=== PATIENT | male | born 1965 | race Caucasian/White ===

== ENCOUNTER 2017-09-21 10:24 | Day surgery (SDC) | payer OTHER ==
[~2017-09-21 10:24] MED LIST: NACL 0.9% 1000 ML 1,000 ML ONE
[2017-09-21] MEDS ORDERED: WATER FOR IRRIG STERILE IR ONE (11:38)
[2017-09-21] MEDS ORDERED: NACL 0.9% 1000 ML 1,000 ML IV SCH (13:00)
--- NOTE | 2017-09-21 13:53 | Anesthesia Day of Surgery ---
Anesthesia Day of Surgery - Day of Surgery Patient Examined: Yes Patient H&P Reviewed: Yes Patient is NPO: Yes
--- NOTE | 2017-09-21 13:54 | Anesthesia Consultation ---
Anesthesia Consult and Med Hx Date of service: 09/21/17 - Airway Anesthetic Teeth Evaluation: Good ROM Head & Neck: Inadequate Mental/Hyoid Distance: Inadequate Mallampati Class: Class III Intubation Access Assessment: Possibly Difficult - Pulmonary Exam CTA: Yes - Cardiac Exam Cardiac Exam: RRR - Pre-Operative Health Status ASA Pre-Surgery Classification: ASA3 Proposed Anesthetic Plan: IV Sedation (HTN/ GERD/DM) - Cardiovascular System Hx Hypertension: Yes - Central Nervous System Hx Psychiatric Problems: No - Other Systems Hx Cancer: No
[2017-09-21] MEDS ORDERED: XYLOCAINE MPF 2% ONE (15:00)
[2017-09-21] MEDS ORDERED: DIPRIVAN 10 MG/ML IV ONE ×2 (15:05)
--- NOTE | 2017-09-21 15:26 | Operative Report ---
Operative Report Operative Report: Date of procedure: 09/21/2017 Procedure: Colonoscopy. Attending physician: Scotty Burgos MD Marketing Operations Manager: Scotty Burgos MD Indication: Patient is a 52-year-old male who presents for colonoscopy for colorectal cancer screening. A colonoscopy serves to evaluate patient so that treatment may be directed based on the findings. Consent: Informed consent was obtained after advising the patient and family regarding nature of this procedure, its indications, potential benefits as well as possible complications including but not limited to bleeding perforation and adverse reaction to medication, infection as well as other cardiopulmonary complications. An informed written and verbal consent was then obtained after due opportunity was provided for questions and answers. Monitoring: Patient was monitored continuously with pulse oximetry and electrocardiographic recordings as well as blood pressure recordings. Vital signs remained stable throughout this procedure with no untoward events. Preoperative assessment: Patient was assessed immediately prior to this procedure for capacity to tolerate monitored anesthesia care and moderate sedation as well as general anesthesia. Patient's ASA classification is 2, Mallampati class is 2, Hyomental distance is 3. Instrument: [employer] video colonoscope Medications: Propofol given intravenously in divided doses. For details please refer to anesthesia records. Description of procedure: Patient was placed in the left lateral decubitus position after achieving sedation, a digital rectal examination was performed following which the colonoscope was introduced into the anal verge and advanced to the cecum which was identified by the ileocecal valve, the appendiceal orifice, as well as by the cecal strap and direct transillumination. The colonoscope was subsequently withdrawn with careful inspection of all mucosal surfaces. Patient tolerated this procedure well and was subsequently taken to the recovery room. The following findings were noted. Findings: Patient had a few diminutive diverticula in the sigmoid colon. There were areas of retained stool in the ascending colon cecum and also in the transverse colon. These areas were vigorously irrigated to achieve optimal visualization. The rest of the colon to the cecum was normal. The preparation was fair. On the retroflex view at the anal verge, patient had internal hemorrhoids. Impression: Mild diverticulosis. Retained stool. Internal hemorrhoids . Plan: High-fiber diet. Repeat colonoscopy in 10 years.
--- NOTE | 2017-09-21 15:27 | Discharge Summary ---
Short Stay Discharge Plan Activity: advance as tolerated Weight Bearing Status: Weight Bear as Tolerated Diet: regular Follow up with: TASHA TORRES MD [Primary Care Provider] - 7 Days
[2017-09-21 16:03] VITALS: BP 108/72
== END 2017-09-21 15:55 | disposition home or self-care (01) ==
LOC: GIO 10:24
PROVIDERS: ATTEND Internal Medicine Gastroenterology
DX: Z12.11 Encounter for screening for malignant neoplasm of colon (principal); K57.30 Diverticulosis of large intestine without perforation or abscess without bleeding; K64.8 Other hemorrhoids; K21.9 Gastro-esophageal reflux disease without esophagitis; I10 Essential (primary) hypertension; E11.9 Type 2 diabetes mellitus without complications; Z79.84 Long term (current) use of oral hypoglycemic drugs; Z79.899 Other long term (current) drug therapy
CPT/HCPCS: 45378; 82962; J2704; J7030